=== PATIENT | female | born 1995 ===

== ENCOUNTER → 2018-10-12 21:07 | Outpatient (REF) | payer OTHER, SELFPAY ==
[2018-10-12 21:42] LABS: Add Manual Diff / Slide Review NO; Basophils Percent Auto 0.4 % (0-2); Eosinophils Percent Auto 0.9 % (2-4); Hematocrit 42.2 % (36-46); Hemoglobin 14.1 g/dL (12.0-16.0); Lymphocytes Percent Auto 31.5 % (25-40); Mean Corpuscular HGB Conc 33.3 % (30-36); Mean Corpuscular Volume 90.2 fL (80-100); Monocytes Percent Auto 7.9 % (3-14); Neutrophils Absolute Auto 3200 /uL (1500-7000); Neutrophils Percent Auto 59.3 % (50-75); Platelet Count 247 X10^3/uL (150-400); Red Blood Cell Count 4.68 X10^6/uL (4.0-5.2); Red Cell Distribution Width 13.6 % (11.6-14.8); White Blood Cell Count 5.5 X10^3/uL (4.5-11.0)
[2018-10-12 23:20] LABS: Alanine Aminotransferase 31 IU/L (9-52); Albumin 4.4 g/dL (3.5-5.0); Albumin Globulin Ratio 1.3 (1.0-2.8); Alkaline Phosphatase 50 U/L (38-126); Aspartate Aminotransferase 25 IU/L (14-36); Bilirubin Total 0.4 mg/dL (0.2-1.3); Blood Urea Nitrogen 9 mg/dL (7-17); Calcium 9.8 mg/dL (8.4-10.2); Carbon Dioxide 25 mmol/L (22-32); Chloride 105 mmol/L (98-107); Estimated Glomerular Filt Rate > 60.0 mL/min (>60); Globulin 3.4 g/dL (1.7-4.1); Glucose 78 mg/dL (70-100); HEMOLYSIS < 15 (0-50); Potassium 4.5 mmol/L (3.4-5.1); Sodium 146 mmol/L (137-145); Total Protein 7.8 g/dL (6.3-8.2)
[2018-10-13 02:26] LABS: Prolactin 16.5 ng/mL (3.0-18.6)
== END ==
LOC: LAB 21:07
PROVIDERS: Visit Provider Physician Assistant
DX: N64.4 Mastodynia (principal); N64.52 Nipple discharge
CPT/HCPCS: 80053; 84146; 85025

== ENCOUNTER → 2018-11-08 23:01 | Outpatient (REF) | payer OTHER, SELFPAY ==
[2018-11-09 02:22] LABS: Hep C Virus Ab w/Reflex Quant NEGATIVE s/c (NEGATIVE); Hepatitis B Surface Antigen NEGATIVE s/c (NEGATIVE)
[2018-11-10 14:35] LABS: HSV 2 IGG AB < 0.90 index (< 0.90)
[2018-11-10 15:41] LABS: Hepatitis B Core Antibody Nonreactive (Nonreactive)
[2018-11-11 15:13] LABS: Hepatitis B Surf Ab Qualitativ Nonreactive (Nonreactive)
[2018-11-11 17:57] LABS: HIV Ag/Ab, 4th Gen Nonreactive (Nonreactive)
[2018-11-11 21:59] LABS: RPR Screen Nonreactive (Nonreactive)
== END ==
LOC: LAB 23:01
PROVIDERS: Family Medicine; Visit Provider Physician Assistant
DX: Z11.3 Encounter for screening for infections with a predominantly sexual mode of transmission (principal); N39.0 Urinary tract infection, site not specified
CPT/HCPCS: 36415; 86592; 86695; 86696; 86703; 86704; 86706; 86803; 87077; 87086; 87186; 87340; 87661

== ENCOUNTER → 2019-01-17 21:16 | Outpatient (REF) | payer OTHER, SELFPAY | LOC: LAB 21:16 | PROVIDERS: Visit Provider Physician Assistant | DX: N39.0 Urinary tract infection, site not specified (principal) | CPT/HCPCS: 87077; 87086; 87186 ==